=== PATIENT | female | born 1940 | race Hispanic/Latino ===

== ENCOUNTER 2016-11-02 08:49 | Outpatient (CLI) | payer MEDICARE ==
[2016-11-02] MEDS ORDERED: DULCOLAX PR ONE (09:57)
--- NOTE | 2016-11-02 11:51 | Fluoroscopy Report ---
DEFAGRAM History: Pelvic floor dysfunction, incontinence, rectal prolapse. Findings: Emergency Room Tech film of the abdomen is unremarkable. The patient was unable to retain the contrast agent within the rectal vault. Lateral cine images could not be obtained. There is no gross rectal mass or ulceration. No gross rectal prolapse. Impression: Limited nondiagnostic defagram because the patient could not retain the contrast agent within the rectum. The patient was incontinent. There is no gross anatomical abnormality of the rectum.
== END 2016-11-02 08:50 | disposition home or self-care (01) ==
LOC: FLUORO 08:49
PROVIDERS: ATTEND Internal Medicine Gastroenterology
DX: M62.89 Other specified disorders of muscle (principal); R32 Unspecified urinary incontinence
CPT/HCPCS: 74270; Q9963